=== PATIENT | male | born 1950 | race Caucasian/White ===

== ENCOUNTER 2024-05-04 19:25 | Inpatient (IN) | payer MEDICARE, SELFPAY ==
[~2024-05-04] VITALS: Ht 162.6 cm; Wt 68.0 kg
[~2024-05-04 19:25] MED LIST: ACET65TA; ASPI81TA83; GLUC1000; LISI10TA4; LOPR50TA; MULTIVIT; SIMV40TA2
[2024-05-04] MEDS: NS 1,000 ML IV ONE (20:03)
[2024-05-04] MEDS: LORazepam 2 MG/ML 1ML VIAL IV STA (20:06)
[2024-05-04 20:15] LABS: BASO % 0.5 % (0.0-1.0); EOS # 0.1 10^3/uL (0.0-0.5); HEMOGLOBIN 15.1 g/dl (13.5-17.5); LYMPH # 1.9 10^3/uL (1.5-5.0); LYMPH % 34.2 % (24.0-44.0); MEAN CORPUSCULAR HEMOGLOBIN 29.7 pg (27.0-33.0); MEAN CORPUSCULAR HGB CONC 34.3 g/dl (32.0-36.5); MEAN CORPUSCULAR VOLUME 86.6 fl (80.0-96.0); MONO # 0.6 10^3/uL (0.0-0.8); MONO % 10.9 % (2.0-8.0); NEUTROPHILS # 2.9 10^3/uL (1.5-8.5); NEUTROPHILS % 52.2 % (36.0-66.0); PLATELET COUNT, AUTOMATED 270 10^3/uL (150-450); RED BLOOD COUNT 5.08 10^6/uL (4.30-6.10); WHITE BLOOD COUNT 5.5 10^3/uL (4.0-10.0)
[2024-05-04 20:38] LABS: AMPHETAMINES LEVEL URINE NEGATIVE (NEGATIVE); BARBITURATES URINE NEGATIVE (NEGATIVE); BENZODIAZEPINES URINE NEGATIVE (NEGATIVE); CANNABINOIDS URINE NEGATIVE (NEGATIVE); COCAINE METABOLITE URINE NEGATIVE (NEGATIVE); METHADONE URINE NEGATIVE (NEGATIVE); OPIATES URINE NEGATIVE (NEGATIVE); PHENCYCLIDINE URINE NEGATIVE (NEGATIVE)
[2024-05-04 20:40] LABS: ETHYL ALCOHOL (ETHANOL) 0.186 % (0.000-0.010)
[2024-05-04 20:42] LABS: ALBUMIN 4.5 G/DL (3.2-5.2); ALKALINE PHOSPHATASE 104 U/L (46-116); ALT/SGPT 29 U/L (7.0-40); AST/SGOT 14 U/L (<34); BILIRUBIN,DIRECT 0.2 MG/DL (<0.4); BILIRUBIN,TOTAL 0.4 MG/DL (0.3-1.2); BLOOD UREA NITROGEN 16 MG/DL (9-23); CALCIUM LEVEL 9.4 MG/DL (8.3-10.6); CARBON DIOXIDE LEVEL 18 MMOL/L (20-31); CHLORIDE LEVEL 109 MMOL/L (98-107); CPK CREATINE PHOSPHOKINASE 197 U/L (46-171); CREATININE FOR GFR 0.64 MG/DL (0.70-1.30); GLOMERULAR FILTRATION RATE > 60.0 (>42); GLUCOSE, FASTING 181 MG/DL (74-106); SALICYLATE LEVEL < 3.0 MG/DL (<30); SODIUM LEVEL 142 MMOL/L (136-145); TOTAL PROTEIN 7.1 G/DL (5.7-8.2)
[2024-05-04 20:44] LABS: THYROID STIMULATING HORMONE 1.208 uIU/ML (0.55-4.78)
[2024-05-05] MEDS ORDERED: CHOL25TA2 PO (08:47)
[2024-05-05] MEDS ORDERED: ASPI81TA26 PO (08:47)
[2024-05-05] MEDS ORDERED: METF-877 PO (08:47)
[2024-05-05] MEDS ORDERED: LISI30TA4 PO (08:47)
[2024-05-05] MEDS ORDERED: SIMV40TA20 PO (08:47)
[2024-05-05] MEDS ORDERED: HOME MED LIST COMPLETE! XX SCH (08:50)
[2024-05-05] MEDS ORDERED: diphenhydrAMINE 25MG CAP PO PRN (10:10)
[2024-05-05] MEDS ORDERED: MOM 30ML SUSPENSION UDC PO PRN (10:10)
[2024-05-05] MEDS ORDERED: ACETAMINOPHEN TAB 650MG DOSE (2X325MG) PO PRN (10:10)
[2024-05-05] MEDS ORDERED: traZODone 50 MG TAB PO PRN (10:10)
[2024-05-05] MEDS ORDERED: LORazepam 2 MG TAB PO PRN (10:10)
[2024-05-05] MEDS ORDERED: MAALOX 30 ML SUSP *UDC PO PRN (10:10)
[2024-05-05] MEDS: MULTIVITAMINS/MINERALS THERAP 1 TAB PO SCH (10:28)
[2024-05-05] MEDS: metFORMIN (GLUCOPHAGE) 1000MG TABLET PO SCH ×2 (10:28→18:24)
[2024-05-05] MEDS: THIAMINE 100 MG TAB PO SCH (10:28)
[2024-05-05] MEDS: SIMVASTATIN 20 MG TAB PO SCH (10:28)
[2024-05-05] MEDS: ASPIRIN 81MG ENTERIC TABLET PO SCH (10:29)
[2024-05-05] MEDS: FOLIC ACID 1MG TAB PO SCH (10:29)
[2024-05-05] MEDS: VITAMIN D 1,000 INTERNATIONAL UNITS TABLET PO SCH (10:29)
[2024-05-05 14:14] VITALS: BP 125/84
[2024-05-05 14:15] VITALS: BP 125/84; TEMP 98; O2SAT 97
[2024-05-05 21:25] VITALS: BP 132/60
[2024-05-06] VITALS (7 sets, daily range): BP systolic 116–142; BP diastolic 53–70; TEMP 97.8–98.2; O2SAT 95
[2024-05-06] MEDS: NICOTINE 14 MG/24 HR TRANSDERMAL TD SCH (08:32)
[2024-05-06] MEDS ORDERED: hydrOXYzine 50 MG TAB PO PRN (09:05)
[2024-05-06] MEDS: SERTRALINE HCL 25 MG TABLET PO SCH (09:15)
[2024-05-06] MEDS: PRAZOSIN 1 MG CAP PO SCH (21:25)
[2024-05-07 06:16] VITALS: BP 102/57; TEMP 98.2; O2SAT 99
[2024-05-07 09:15] VITALS: BP 132/61
[2024-05-07 10:43] LABS: BLOOD UREA NITROGEN 15 MG/DL (9-23); CALCIUM LEVEL 8.9 MG/DL (8.3-10.6); CARBON DIOXIDE LEVEL 24 MMOL/L (20-31); CHLORIDE LEVEL 105 MMOL/L (98-107); CREATININE FOR GFR 0.66 MG/DL (0.70-1.30); GLOMERULAR FILTRATION RATE > 60.0 (>42); GLUCOSE, FASTING 304 MG/DL (74-106); MAGNESIUM LEVEL 1.8 MG/DL (1.8-2.4); POTASSIUM SERUM 4.7 MMOL/L (3.5-5.1); SODIUM LEVEL 137 MMOL/L (136-145)
[2024-05-07 10:44] LABS: CPK CREATINE PHOSPHOKINASE 73 U/L (46-171)
[2024-05-07 11:05] LABS: MB/CK RELATIVE INDEX 2.73 (< OR =4); PHOSPHORUS LEVEL 4.6 MG/DL (2.4-5.1)
[2024-05-07 11:10] VITALS: BP 104/56
[2024-05-07] MEDS: LIDOCAINE 5% (LIDODERM) PATCH TD SCH (12:54)
[2024-05-07] MEDS: OMEPRAZOLE 20MG CAP PO SCH (12:54)
[2024-05-07] MEDS: IBUPROFEN 400MG TAB PO PRN (14:25)
[2024-05-07 17:46] VITALS: BP 112/64; TEMP 97.9; O2SAT 98
[2024-05-08 06:26] VITALS: BP 132/58; TEMP 98.5; O2SAT 96
[2024-05-08 10:35] VITALS: BP 122/50
[2024-05-08 18:38] VITALS: BP 102/50; TEMP 98.5
[2024-05-09 06:23] VITALS: BP 138/60; TEMP 98.5; O2SAT 96
[2024-05-09] MEDS: METOPROLOL TART 12.5 MG PER 1/2 TAB PO SCH (09:00)
[2024-05-09 12:22] VITALS: BP_SYST 138; BP_SYST 144; BP_SYST 146; BP_DIAS 54; BP_DIAS 56
[2024-05-09 17:41] VITALS: BP 124/56; TEMP 98
[2024-05-10 06:28] VITALS: BP 130/70; TEMP 98; O2SAT 95
[2024-05-10 08:30] VITALS: BP 132/70
[2024-05-10] MEDS ORDERED: SERT25TA21 PO (10:38)
[2024-05-10] MEDS ORDERED: OMEP-173 PO (10:38)
[2024-05-10] MEDS ORDERED: LIDO5TD TD (10:38)
[2024-05-10] MEDS ORDERED: NICO14PA TD (10:38)
[2024-05-10] MEDS ORDERED: LISI10TA22 PO (10:38)
[2024-05-10] MEDS ORDERED: METO1TAB87 PO (10:38)
== END 2024-05-10 13:50 | disposition home or self-care (01) | DRG 885 ==
LOC: EDBD 19:25 → M ED 19:25 → M ED INP 05-05 10:09 → M PSY 05-05 12:31
PROVIDERS: ADMIT Student in an Organized Health Care Education/Training Program; ATTEND Student in an Organized Health Care Education/Training Program
PROC: B246ZZZ Ultrasonography of Right and Left Heart (ICD-10-PCS; principal; 2024-05-08)
DX: F32.2 Major depressive disorder, single episode, severe without psychotic features (principal); R45.851 Suicidal ideations; F43.10 Post-traumatic stress disorder, unspecified; F10.10 Alcohol abuse, uncomplicated; I10 Essential (primary) hypertension; E78.5 Hyperlipidemia, unspecified; H91.93 Unspecified hearing loss, bilateral; E11.9 Type 2 diabetes mellitus without complications; H53.8 Other visual disturbances; N40.0 Benign prostatic hyperplasia without lower urinary tract symptoms; N50.811 Right testicular pain; M54.6 Pain in thoracic spine; R07.89 Other chest pain; R42 Dizziness and giddiness; Z91.51 Personal history of suicidal behavior; Z79.82 Long term (current) use of aspirin; Z79.899 Other long term (current) drug therapy; Z79.84 Long term (current) use of oral hypoglycemic drugs; Z88.2 Allergy status to sulfonamides; Z63.4 Disappearance and death of family member